=== PATIENT | female | born 1995 ===

== ENCOUNTER 2017-02-14 14:08 | Emergency (ER) | payer MEDICAID ==
[2017-02-14 14:08] VITALS: BMI 23.4
[2017-02-14 14:33] VITALS: BP 111/80; PULSE 109; RESP 18; TEMP 99; O2SAT 100
[2017-02-14] MEDS ORDERED: methylPREDNISolone 125 MG in Sodium Chloride 0.9% 50 ML IV STA (14:44)
[2017-02-14] MEDS ORDERED: Sodium Chloride 0.9% 1,000 ML IV STA (14:44)
--- NOTE | 2017-02-14 15:10 | ED PDOC ---
HPI: Allergic Reaction Time Seen by Provider: 02/14/17 14:35 Chief Complaint (Nursing): Allergic Reaction Chief Complaint (Provider): ALLERGIC REACTION History Per: Patient (22 Y/O FEMALE IN ED FOR EVALUATION OF URTICARIA/RASH 30 MIN PRIOR WORSENING. PATIENT STATES SYMPTOMS BEGAN AFTER LUNCH BUT THIS WAS SIMILAR MEAL TO LAST NIGHT. UNSURE OF ALLERGEN. DENIES ANY SOB/FEVERS/CHILLS. TOOK BENADRYL 50 MG PRIOR TO ED ARRIVAL.) Past Medical History Reviewed: Historical Data, Nursing Documentation, Vital Signs Vital Signs: Last Vital Signs Temp 99 F 02/14/17 14:29 Pulse 109 H 02/14/17 14:29 Resp 18 02/14/17 14:29 BP 111/80 02/14/17 14:29 Pulse Ox 100 02/14/17 14:29 - Medical History PMH: Asthma Denies: Anemia, Diabetes - Family History Family History: States: Unknown Family Hx, Diabetes - Home Medications Home Medications: Ambulatory Orders Medication Instructions Recorded Calamine/Pramoxine [Caladryl] 180 ml TP DAILY #1 bottle 08/12/16 Loratadine/Pseudoephedrine 1 each PO DAILY #12 tab.er.24h 08/12/16 [Claritin-D 24 Hour Tablet] predniSONE [predniSONE Tab] 20 mg PO BID #8 tab 08/12/16 Clindamycin [Cleocin] 300 mg PO TID #30 cap 09/16/16 DiphenhydrAMINE [Benadryl] 50 mg PO Q6 #20 cap 09/16/16 Famotidine [Pepcid] 20 mg PO Q12 #20 tab 09/16/16 predniSONE [predniSONE Tab] 10 mg PO TID #15 tab 09/16/16 DiphenhydrAMINE [Benadryl] 1 - 2 tab PO Q4 PRN #24 cap 02/14/17 Famotidine [Pepcid] 20 mg PO BID #10 tab 02/14/17 Prednisone [Deltasone] 3 tab PO DAILY #12 tablet 02/14/17 - Allergies Allergies/Adverse Reactions: Allergies Allergy/AdvReac Type Severity Reaction Status Date / Time almond Allergy RASH Verified 09/16/16 09:47 Review of Systems ROS Statement: Except As Marked, All Systems Reviewed And Found Negative Physical Exam - Reviewed Nursing Documentation Reviewed: Yes Vital Signs Reviewed: Yes - Physical Exam Appears: Positive for: Well, Non-toxic, No Acute Distress Head Exam: Positive for: ATRAUMATIC, NORMAL INSPECTION, NORMOCEPHALIC Skin: Positive for: Normal Color, Warm, Rash (GENERALIZED URTICARIA NOTED ON FACE/NECK/TORSO) Eye Exam: Positive for: EOMI, Normal appearance, PERRL ENT: Positive for: Normal ENT Inspection Neck: Positive for: Normal, Painless ROM Cardiovascular/Chest: Positive for: Regular Rate, Rhythm Respiratory: Positive for: CNT, Normal Breath Sounds Gastrointestinal/Abdominal: Positive for: Normal Exam, Bowel Sounds, Soft Back: Positive for: Normal Inspection Extremity: Positive for: Normal ROM Neurologic/Psych: Positive for: Alert, Oriented - ECG O2 Sat by Pulse Oximetry: 100 - Progress ED Course And Treament: SOLUMEDROL 125 MG IV X 1 DOSE PEPCID 20 MG IV X 1 DOSE NS 1 LITER RE-EVALUATED AFTER MEDICATIONS ADMINISTERED. MODERATE IMPROVEMENT NOTED. WILL OBSERVE AND HYDRATE X 1 LITER PRIOR TO D/C Disposition - Clinical Impression Clinical Impression: Acute allergic reaction - Patient ED Disposition Is Patient to be Admitted: No - Disposition Disposition: Routine/Home Disposition Time: 16:30 Condition: FAIR Prescriptions: DiphenhydrAMINE [Benadryl] 1 - 2 tab PO Q4 PRN #24 cap PRN Reason: Itching / Pruritus Famotidine [Pepcid] 20 mg PO BID #10 tab Prednisone [Deltasone] 3 tab PO DAILY #12 tablet Instructions: General Allergic Reaction (ED) Forms: [employer] (Yi)
== END 2017-02-14 17:34 | disposition home or self-care (01) ==
LOC: H.ER 14:08
DX: T78.40XA Allergy, unspecified, initial encounter (principal); J45.909 Unspecified asthma, uncomplicated

== ENCOUNTER 2017-08-10 09:33 | Emergency (ER) | payer MEDICAID ==
[2017-08-10 09:33] VITALS: BMI 23.4
--- NOTE | 2017-08-10 10:48 | ED PDOC ---
HPI: Female Pain Time Seen by Provider: 08/10/17 10:19 Chief Complaint (Nursing): Female Genitourinary Chief Complaint (Provider): Female Genitourinary History Per: Patient History/Exam Limitations: no limitations Onset/Duration Of Symptoms: Days (several weeks. ) Current Symptoms Are (Timing): Still Present Quality Of Discomfort: Cramping (lower abdominal) Associated Symptoms: denies: Back Pain Additional Complaint(s): Tereza Khan is a 22 year old female, with a past medical history of asthma, who present to the emergency department complaining of lower crampy abdominal pain onset today and urinary symptoms associated with cloudy urine onset for several weeks. Patient reports she saw her physician who prescribed her Macrobid, and a 2nd round which she finished x1 week ago. She states today she noticed cloudy urine, and had some lower abdominal cramps which concerned her. LMP was April 09, but she is currently taking depo shots. Patient noticed streaks of blood in stool after she had some cranberry juice. She denies any back pain, vaginal bleeding or discharge, fever, diarrhea or constipation. No further medical complaints. PMD: None provided. Abnormal Vaginal Bleeding: No Past Medical History Reviewed: Historical Data, Nursing Documentation, Vital Signs - Medical History PMH: Asthma Denies: Anemia, Diabetes - Surgical History Surgical History: No Surg Hx - Family History Family History: States: Unknown Family Hx, Diabetes - Home Medications Home Medications: Ambulatory Orders Medication Instructions Recorded Calamine/Pramoxine [Caladryl] 180 ml TP DAILY #1 bottle 08/12/16 Loratadine/Pseudoephedrine 1 each PO DAILY #12 tab.er.24h 08/12/16 [Claritin-D 24 Hour Tablet] predniSONE [predniSONE Tab] 20 mg PO BID #8 tab 08/12/16 Clindamycin [Cleocin] 300 mg PO TID #30 cap 09/16/16 DiphenhydrAMINE [Benadryl] 50 mg PO Q6 #20 cap 09/16/16 Famotidine [Pepcid] 20 mg PO Q12 #20 tab 09/16/16 predniSONE [predniSONE Tab] 10 mg PO TID #15 tab 09/16/16 DiphenhydrAMINE [Benadryl] 1 - 2 tab PO Q4 PRN #24 cap 08/08/17 Famotidine [Pepcid] 20 mg PO BID #10 tab 02/14/17 Prednisone [Deltasone] 3 tab PO DAILY #12 tablet 02/14/17 Cephalexin [Keflex] 500 mg PO BID #10 capsule 08/10/17 - Allergies Allergies/Adverse Reactions: Allergies Allergy/AdvReac Type Severity Reaction Status Date / Time almond Allergy RASH Verified 09/16/16 09:47 Sulfa (Sulfonamide Allergy RASH Verified 08/10/17 10:27 Antibiotics) Review of Systems ROS Statement: Except As Marked, All Systems Reviewed And Found Negative Constitutional: Negative for: Fever Gastrointestinal: Positive for: Abdominal Pain (lower crampy), Hematochezia. Negative for: Diarrhea, Constipation Genitourinary Female: Positive for: Other (Cloudy urine). Negative for: Vaginal Discharge, Vaginal Bleeding Musculoskeletal: Negative for: Back Pain Physical Exam - Reviewed Nursing Documentation Reviewed: Yes Vital Signs Reviewed: Yes (BP 115/80, HR 78, RR 18, afebril) - Physical Exam Appears: Positive for: Non-toxic Head Exam: Positive for: ATRAUMATIC, NORMAL INSPECTION, NORMOCEPHALIC Skin: Positive for: Normal Color, Warm, Dry Eye Exam: Positive for: Normal appearance, EOMI, PERRL Neck: Positive for: Painless ROM, Supple Cardiovascular/Chest: Positive for: Regular Rate, Rhythm. Negative for: Murmur Respiratory: Positive for: Normal Breath Sounds. Negative for: Respiratory Distress Gastrointestinal/Abdominal: Positive for: Normal Exam, Soft. Negative for: Tenderness, Guarding, Rebound Pelvic Exam: Positive for: External Exam Normal, Speculum Exam Normal, Bimanual Exam Normal, No Cerv. Motion Tender Back: Positive for: Normal Inspection. Negative for: L CVA Tenderness, R CVA Tenderness, Vertebral Tenderness Rectal: Positive for: Normal Exam, Stool Is Heme: (negative) Extremity: Positive for: Normal ROM. Negative for: Deformity, Swelling Neurologic/Psych: Positive for: Alert, Oriented Medical Decision Making Medical Decision Making: Initial Impressin: Rule out UTI, STD Initial Plan: --Chlamydia/GC RNA, TMA --Urine culture --Urinalysis --reevaluation 11:50 --Pt's abdominal pain resolved. Urine has trace RBCs, no WBCs. No nitrate. --Explained the pt she should follow-up with urine culture. Rx Kefelx and to follow up with primary doctor Scribe Attestation: Documented by Sammy Houston, acting as a scribe for Harinder Albert MD Provider Scribe Attestation: All medical record entries made by the Scribe were at my direction and personally dictated by me. I have reviewed the chart and agree that the record accurately reflects my personal performance of the history, physical exam, medical decision making, and the department course for this patient. I have also personally directed, reviewed, and agree with the discharge instructions and disposition. Disposition - Clinical Impression Clinical Impression: Abdominal pain - Patient ED Disposition Is Patient to be Admitted: No - Disposition Disposition: Routine/Home Disposition Time: 11:55 Condition: IMPROVED Additional Instructions: Khan, thank you for letting us take care of you today. Your provider was Dr. Albert. You were treated for Abdominal Pain, Urinary Symptoms. The emergency medical care you received today was directed at your acute symptoms. If you were prescribed any medication, please fill it and take as directed. It may take several days for your symptoms to resolve. Return to the Emergency Department if your symptoms worsen, do not improve, or if you have any other problems. Please contact your doctor or call one of the physicians/clinics you have been referred to that are listed on the Patient Visit Information form that is included in your discharge packet. Bring any paperwork you were given at discharge with you along with any medications you are taking to your follow up visit. Our treatment cannot replace ongoing medical care by a primary care provider (PCP) outside of the emergency department. Thank you for allowing the [facility] team to be part of your care today. If you had an X-Ray or CT scan: A Radiologist will review the ED reading if any change in treatment is needed we will contact you. If you had a blood, urine, or wound culture: It will take several days for the results, if any change in treatment is needed we will contact you. If you had an STI test: It will take 48 hours for the results. Please call after 1 week if you have not heard back. Prescriptions: Cephalexin [Keflex] 500 mg PO BID #10 capsule Instructions: Acute Abdominal Pain (ED) Forms: [employer] (Nepali), [facility] ED School/Work Excuse
[2017-08-10 11:14] LABS: SQUAMOUS EPITHIAL 7 /hpf (0-5); URINE BACTERIA OCC (<OCC); URINE BILIRUBIN NEGATIVE (NEGATIVE); URINE BLOOD NEGATIVE (NEGATIVE); URINE CLARITY CLOUDY (Clear); URINE COLOR YELLOW (YELLOW); URINE GLUCOSE (UA) NEG (Normal); URINE LEUKOCYTE ESTERASE SMALL Leu/uL (Negative); URINE NITRATE NEGATIVE (NEGATIVE); URINE PROTEIN NEGATIVE (NEGATIVE); URINE UROBILINOGEN 0.2-1.0 mg/dL (0.2-1.0)
== END 2017-08-10 12:50 | disposition home or self-care (01) ==
LOC: H.ER 09:33
DX: R10.30 Lower abdominal pain, unspecified (principal); J45.909 Unspecified asthma, uncomplicated
CPT/HCPCS: 81003; 87086; 87491; 87591; 99282; G0328

== ENCOUNTER 2017-10-17 09:13 | Emergency (ER) | payer MEDICAID ==
[2017-10-17 09:13] VITALS: BMI 23.4
[2017-10-17 09:19] VITALS: BP 106/71; PULSE 92; TEMP 98.4; O2SAT 100
--- NOTE | 2017-10-17 10:59 | ED PDOC ---
Upper Extremity Pain/Injury Time Seen by Provider: 10/17/17 09:57 Chief Complaint (Nursing): Upper Extremity Problem/Injury Chief Complaint (Provider): Upper Extremity Problem/Injury History Per: Patient History/Exam Limitations: no limitations Onset/Duration Of Symptoms: Days (x 7) Current Symptoms Are (Timing): Still Present Additional Complaint(s): 22 years old female with history of Asthma who presents to the ED complaining of right wrist and elbow pain after she fell last week. Patient states she was seen by a doctor who did X-Ray and told her it was only bruised and swollen. She took over the counter medication but she is still complaining of pain. Patient denies any numbness or weakness or other injuries of the right arm. Past Medical History Reviewed: Historical Data, Nursing Documentation, Vital Signs Vital Signs: Last Vital Signs Temp 98.4 F 10/17/17 09:18 Pulse 92 H 10/17/17 09:18 Resp 18 10/17/17 09:18 BP 106/71 10/17/17 09:18 Pulse Ox 100 10/17/17 09:18 - Medical History PMH: Asthma Denies: Anemia, Diabetes - Surgical History Surgical History: No Surg Hx - Family History Family History: States: Unknown Family Hx, Diabetes - Social History Current smoker - smoking cessation education provided: No Alcohol: None Drugs: Denies - Home Medications Home Medications: Ambulatory Orders Medication Instructions Recorded Calamine/Pramoxine [Caladryl] 180 ml TP DAILY #1 bottle 08/12/16 Loratadine/Pseudoephedrine 1 each PO DAILY #12 tab.er.24h 08/12/16 [Claritin-D 24 Hour Tablet] predniSONE [predniSONE Tab] 20 mg PO BID #8 tab 08/12/16 Clindamycin [Cleocin] 300 mg PO TID #30 cap 09/16/16 DiphenhydrAMINE [Benadryl] 50 mg PO Q6 #20 cap 09/16/16 Famotidine [Pepcid] 20 mg PO Q12 #20 tab 09/16/16 predniSONE [predniSONE Tab] 10 mg PO TID #15 tab 09/16/16 DiphenhydrAMINE [Benadryl] 1 - 2 tab PO Q4 PRN #24 cap 02/14/17 Famotidine [Pepcid] 20 mg PO BID #10 tab 02/14/17 Prednisone [Deltasone] 3 tab PO DAILY #12 tablet 02/14/17 Cephalexin [Keflex] 500 mg PO BID #10 capsule 08/10/17 - Allergies Allergies/Adverse Reactions: Allergies Allergy/AdvReac Type Severity Reaction Status Date / Time almond Allergy RASH Verified 09/16/16 09:47 Sulfa (Sulfonamide Allergy RASH Verified 08/10/17 10:27 Antibiotics) Review of Systems ROS Statement: Except As Marked, All Systems Reviewed And Found Negative Musculoskeletal: Positive for: Arm Pain (Right elbow), Hand Pain (Right wrist) Neurological: Negative for: Weakness, Numbness Physical Exam - Reviewed Nursing Documentation Reviewed: Yes Vital Signs Reviewed: Yes - Physical Exam Appears: Positive for: Non-toxic, No Acute Distress Head Exam: Positive for: ATRAUMATIC, NORMOCEPHALIC Skin: Positive for: Normal Color, Warm, Dry Eye Exam: Positive for: Normal appearance Neck: Positive for: Normal, Painless ROM, Supple Extremity: Positive for: Normal ROM (in all extremities. Painfull ROM in the right wrist), Capillary Refill (Normal), Other (tendons exam of fingers normal. Pulse is normal). Negative for: Deformity, Swelling (No erythema, ecchymosis in the right wrist) Neurologic/Psych: Positive for: Alert, Oriented. Negative for: Motor/Sensory Deficits - ECG O2 Sat by Pulse Oximetry: 100 (RA) Pulse Ox Interpretation: Normal Medical Decision Making Medical Decision Making: Initial Impression: Wrist. injury Differential includes but not limited to fracture, dislocation of writs, right elbow injury r/o fracture. Initial Plan: --Elbow two views RT (RAD) --Right wrist three views RIGHT ELBOW X-RAY FINDINGS: BONES: Normal. No fracture. JOINTS: Normal. No osteoarthritis. SOFT TISSUES: Normal. JOINT EFFUSION: None. OTHER FINDINGS: None. IMPRESSION: Unremarkable radiographs of the right elbow. RIGHT WRIST X-RAY FINDINGS: BONES: Normal. No fracture. JOINTS: Normal. No dislocation. SOFT TISSUES: Normal. OTHER FINDINGS: None. IMPRESSION: Normal right wrist radiographs. 12:30 -Patient Xrays were read. Right elbow and right wrist normal. Thumspica splint on right hand. Patient is medically stable for discharge and was advised to follow up with MD. Scribe Attestation: Documented by Sandra Reinoso, acting as a scribe for Ryan Min MD. Provider Scribe Attestation: All medical record entries made by the Scribe were at my direction and personally dictated by me. I have reviewed the chart and agree that the record accurately reflects my personal performance of the history, physical exam, medical decision making, and the department course for this patient. I have also personally directed, reviewed, and agree with the discharge instructions and disposition. Disposition - Clinical Impression Clinical Impression: Wrist injury - Patient ED Disposition Is Patient to be Admitted: No Doctor Will See Patient In The: Office Counseled Patient/Family Regarding: Studies Performed, Diagnosis, Need For Followup - Disposition Referrals: [facility] [Outside] Rudy Mcconnell MD [Medical Doctor] - Disposition: Routine/Home Disposition Time: 12:30 Condition: GOOD Additional Instructions: Take motrin for pain. Follow up with your PCP in 2-3 days. Instructions: Common Wrist Injuries (DC)
--- NOTE | 2017-10-17 11:32 | RAD ---
PROCEDURE: Radiographs of the right elbow. HISTORY: right elbow pain injury COMPARISON: No prior. FINDINGS: BONES: Normal. No fracture. JOINTS: Normal. No osteoarthritis. SOFT TISSUES: Normal. JOINT EFFUSION: None. OTHER FINDINGS: None. IMPRESSION: Unremarkable radiographs of the right elbow.
--- NOTE | 2017-10-17 11:32 | RAD ---
PROCEDURE: Right Wrist Radiographs. HISTORY: right wrist injury COMPARISON: None. FINDINGS: BONES: Normal. No fracture. JOINTS: Normal. No dislocation. SOFT TISSUES: Normal. OTHER FINDINGS: None. IMPRESSION: Normal right wrist radiographs.
[2017-10-17 12:53] VITALS: RESP 16
== END 2017-10-17 12:50 | disposition home or self-care (01) ==
LOC: H.ER 09:13
DX: J45.909 Unspecified asthma, uncomplicated (principal)

== ENCOUNTER 2018-06-26 09:37 | Emergency (ER) | payer MEDICAID ==
[2018-06-26 09:37] VITALS: BMI 23.4
[2018-06-26 09:44] VITALS: RESP 16; O2SAT 98
--- NOTE | 2018-06-26 10:24 | ED PDOC ---
HPI: General Adult Time Seen by Provider: 06/26/18 09:53 Chief Complaint (Nursing): Abdominal Pain Chief Complaint (Provider): constipation, yeast infection, amenorrhea History Per: Patient History/Exam Limitations: no limitations Onset/Duration Of Symptoms: Gradual, Other (7 months constipation) Current Symptoms Are (Timing): Still Present Severity: Moderate Recently: Treated By A Physician Additional Complaint(s): 23yo female c/o ongoing constipation for about 7 months, saw PMD at [facility] given golytely and miralax last used about one month ago which was effective, notes straining when she needs to go now and can go up to 7-10days without a BM. Denies bloody stools, fever, vomiting or unexplained weight loss. Has not seen GI. Also notes signs of yeast infection with thick white vaginal discharge, recently completed course Abx for UTI. Lastly she notes no menses since prior to depo shot received this summer. Denies potential of being . Denies fever, vomiting, rash, headache, syncope or weakness. Past Medical History Reviewed: Historical Data, Nursing Documentation, Vital Signs Vital Signs: Last Vital Signs Temp 97.8 F 06/26/18 09:43 Pulse 98 H 06/26/18 09:43 Resp 16 06/26/18 09:43 BP 117/77 06/26/18 09:43 Pulse Ox 98 06/26/18 09:43 - Medical History PMH: Asthma Denies: Anemia, Diabetes Other PMH: constipation - Family History Family History: States: Unknown Family Hx, Diabetes - Social History Drugs: Denies - Home Medications Home Medications: Ambulatory Orders Medication Instructions Recorded Calamine/Pramoxine [Caladryl] 180 ml TP DAILY #1 bottle 08/12/16 Loratadine/Pseudoephedrine 1 each PO DAILY #12 tab.er.24h 08/12/16 [Claritin-D 24 Hour Tablet] predniSONE [predniSONE Tab] 20 mg PO BID #8 tab 08/12/16 Clindamycin [Cleocin] 300 mg PO TID #30 cap 09/16/16 DiphenhydrAMINE [Benadryl] 50 mg PO Q6 #20 cap 09/16/16 Famotidine [Pepcid] 20 mg PO Q12 #20 tab 09/16/16 predniSONE [predniSONE Tab] 10 mg PO TID #15 tab 09/16/16 DiphenhydrAMINE [Benadryl] 1 - 2 tab PO Q4 PRN #24 cap 02/14/17 Famotidine [Pepcid] 20 mg PO BID #10 tab 02/14/17 Prednisone [Deltasone] 3 tab PO DAILY #12 tablet 02/14/17 Cephalexin [Keflex] 500 mg PO BID #10 capsule 08/10/17 Bisacodyl [Ducolax] 10 mg RC BID PRN #10 sup 06/26/18 Fluconazole [Diflucan] 150 mg PO ONCE #1 tab 06/26/18 Peg Electrolyte Lavage Solut 500 ml PO BID #1 bottle 06/26/18 [Golytely] Phosphate Enema [Fleet Enema 135 135 ml RC PRN PRN #3 nma 06/26/18 Ml] - Allergies Allergies/Adverse Reactions: Allergies Allergy/AdvReac Type Severity Reaction Status Date / Time almond Allergy RASH Verified 09/16/16 09:47 diphenhydramine Allergy SWELLING Verified 06/26/18 09:58 [From Benadryl] Sulfa (Sulfonamide Allergy RASH Verified 08/10/17 10:27 Antibiotics) Review of Systems ROS Statement: Except As Marked, All Systems Reviewed And Found Negative Constitutional: Negative for: Fever Cardiovascular: Negative for: Chest Pain Respiratory: Negative for: Cough, Shortness of Breath Gastrointestinal: Positive for: Abdominal Pain, Constipation. Negative for: Nausea, Vomiting, Diarrhea, Melena, Hematochezia, Hematemesis, Rectal Pain Genitourinary Female: Positive for: Vaginal Discharge (white). Negative for: Dysuria, Frequency, Hematuria, Pelvic Pain Musculoskeletal: Negative for: Neck Pain, Back Pain, Leg Pain Skin: Negative for: Rash, Lesions Neurological: Negative for: Weakness, Numbness, Headache Psych: Negative for: Depression Physical Exam - Reviewed Nursing Documentation Reviewed: Yes Vital Signs Reviewed: Yes - Physical Exam Appears: Positive for: Well, Non-toxic, No Acute Distress Head Exam: Positive for: ATRAUMATIC, NORMAL INSPECTION, NORMOCEPHALIC Skin: Positive for: Normal Color, Warm, DRY Eye Exam: Positive for: EOMI, Normal appearance, PERRL ENT: Positive for: Normal ENT Inspection Neck: Positive for: Normal, Painless ROM Cardiovascular/Chest: Positive for: Regular Rate, Rhythm Respiratory: Positive for: CNT, Normal Breath Sounds Pulses-Radial (L): 3+/4+ Pulses-Radial (R): 3+/4+ Gastrointestinal/Abdominal: Positive for: Normal Exam, Bowel Sounds (active), Soft. Negative for: Distended, Guarding Extremity: Positive for: Normal ROM. Negative for: Deformity Neurologic/Psych: Positive for: Alert, Oriented. Negative for: Motor/Sensory Deficits - ECG O2 Sat by Pulse Oximetry: 98 Medical Decision Making Medical Decision Making: pt decline pelvic exam, requesting diflucan for yeast infection and refill of constipation meds. give trial of suppository/enema and refer to GI given symptoms now ongoing 7 months without much improvement. Otherwise well appearing in ED, urine dip performed and results reviewed. Disposition - Clinical Impression Clinical Impression: Yeast infection, Constipation - Disposition Referrals: Garrett Geronimo MD [Staff Provider] - Disposition Time: 10:35 Condition: STABLE Additional Instructions: See GI doctor for further evaluation and testing, return to ER for any worse or new symptoms. Use diflucan 150mg orally once for yeast infection. You declined STD testing. Take constipation medications as needed, titrate to effect. Prescriptions: Bisacodyl [Ducolax] 10 mg RC BID PRN #10 sup PRN Reason: Constipation Fluconazole [Diflucan] 150 mg PO ONCE #1 tab Peg Electrolyte Lavage Solut [Golytely] 500 ml PO BID #1 bottle Phosphate Enema [Fleet Enema 135 Ml] 135 ml RC PRN PRN #3 nma PRN Reason: Constipation Instructions: Constipation, Adult (DC), Yeast Infection (DC) Forms: [employer] (Kyrgyz)
[2018-06-26 11:41] VITALS: BP 101/55; PULSE 75; TEMP 98
== END 2018-06-26 11:25 | disposition home or self-care (01) ==
LOC: H.ER 09:37
DX: K59.00 Constipation, unspecified (principal); B37.3 Candidiasis of vulva and vagina